=== PATIENT | female | born 1990 | race Caucasian/White ===

== ENCOUNTER 2018-03-13 12:25 | Inpatient (IN) | payer MEDICAID ==
[2018-03-13 13:14] LABS: ADD UMIC YES; UR AMORPHOUS CRYSTAL FEW /HPF (NONE SEEN); UR ASCORBIC ACID NEGATIVE (NEGATIVE); UR BACTERIA MODERATE /HPF (NONE SEEN); UR BILIRUBIN (Dip) NEGATIVE (NEGATIVE); UR BLOOD (Dip) NEGATIVE (NEGATIVE); UR CLARITY CLEAR (CLEAR); UR COLOR YELLOW (YELLOW); UR GLUCOSE (Dip) NEGATIVE (NEGATIVE); UR KETONES (Dip) NEGATIVE (NEGATIVE); UR LEUKOCYTE ESTERASE (Dip) 1+ Leu/ul (NEGATIVE); UR NITRITE (Dip) NEGATIVE (NEGATIVE); UR RBC 3 /HPF (0-5); UR SPECIFIC GRAVITY (Dip) 1.005 (1.003-1.030); UR SQUAMOUS EPITHELIAL CELL MODERATE /HPF (FEW); UR TOTAL PROTEIN (Dip) NEGATIVE (NEGATIVE); UR UROBILINOGEN (Dip) NEGATIVE (NEGATIVE); UR WBC 24 /HPF (0-5)
[2018-03-13 13:34] LABS: ADD MAN DIFF? NO
[2018-03-13 13:42] LABS: BASOPHILS % 0.1 % (0.0-2.0); EOSINOPHILS % 0.4 % (0.0-7.0); HEMATOCRIT 39.9 % (37.0-47.0); LYMPHOCYTES # 1.5 10^3/ul (0.8-2.9); MEAN CORPUSCULAR HEMOGLOBIN 29.7 pg (29.0-33.0); MEAN CORPUSCULAR HGB CONC 32.6 g/dl (32.0-37.0); MEAN CORPUSCULAR VOLUME 91.3 fl (82.0-101.0); MEAN PLATELET VOLUME 11.5 fl (7.4-10.4); MONOCYTE # 0.7 10^3/ul (0.3-0.9); MONOCYTES % 9.6 % (0.0-11.0); NEUTROPHIL # 4.6 10^3/ul (1.6-7.5); NEUTROPHILS % 67.8 % (39.0-77.0); PLATELET COUNT 258 10^3/UL (140-415); RED BLOOD COUNT 4.37 10^6/ul (4.20-5.40); RED CELL DISTRIBUTION WIDTH 17.2 % (11.5-14.5)
[2018-03-13 13:42] LABS: WHITE BLOOD COUNT 6.8 10^3/ul (4.8-10.8)
[2018-03-13 13:55] LABS: INR 0.89; PROTIME 12.1 Sec (11.9-14.9); PT RATIO 0.9
[2018-03-13 13:56] LABS: PARTIAL THROMBOPLASTIN TIME 24.5 Sec (23.0-35.0)
[2018-03-13 13:58] LABS: ALANINE AMINOTRANSFERASE 24 IU/L (13-69); ALBUMIN 2.8 g/dl (3.3-4.9); ALBUMIN/GLOBULIN RATIO 0.93; ALKALINE PHOSPHATASE 211 IU/L (42-121); ASPARTATE AMINO TRANSFERASE 16 IU/L (15-46); BILIRUBIN,INDIRECT 0.6 mg/dl (0-1.1); BILIRUBIN,TOTAL 0.6 mg/dl (0.2-1.3); BLOOD UREA NITROGEN 7 mg/dl (7-20); CALCIUM 9.4 mg/dl (8.4-10.2); CARBON DIOXIDE 23 mmol/L (21-31); CHLORIDE 107 mmol/L (97-110); CREATININE 0.46 mg/dl (0.44-1.00); GLUCOSE 67 mg/dl (70-220); POTASSIUM 4.1 mmol/L (3.5-5.1); SODIUM 138 mmol/L (135-144); TOTAL PROTEIN 5.8 g/dl (6.1-8.1); URIC ACID 4.9 mg/dl (3.1-7.9)
[2018-03-13] MEDS ORDERED: IBUPROFEN 600 MG TAB PO (14:30)
[2018-03-13] MEDS ORDERED: MISOPROSTOL 200 MCG TAB PR (14:30)
[2018-03-13] MEDS ORDERED: CARBOPROST 250 MCG INJ IM (14:30)
[2018-03-13] MEDS ORDERED: OXYTOCIN 30 UNITS/LR 500 ML IV (14:30)
[2018-03-13] MEDS ORDERED: METHYLERGONOVINE 0.2 MG INJ IM (14:30)
[2018-03-13] MEDS ORDERED: ACETAMINOPHEN/CODEINE #3 TAB PO (14:30)
[2018-03-13] MEDS ORDERED: BUTORPHANOL 2 MG INJ IV (14:30)
[2018-03-13] MEDS: LACTATED RINGER'S 1,000 ML IV* ×2 (14:45→23:05)
[2018-03-13 16:24] LABS: RAPID PLASMA REAGIN NONREACTIVE (NR)
[2018-03-13] MEDS: DINOPROSTONE 10 MG VAG SUPP VAG (16:51)
[2018-03-13 17:21] LABS: HEPATITIS B SURFACE ANTIGEN NEGATIVE (NEGATIVE)
[2018-03-13] MEDS ORDERED: MINERAL OIL LIGHT 10 ML VIAL TOP (18:00)
[2018-03-13] MEDS ORDERED: LIDOCAINE 0.5% (SDV) 50 ML INJ INFIL (18:00)
[2018-03-14] MEDS ORDERED: LIDOCAINE 0.5% (SDV) 50 ML INJ INFIL (01:30)
[2018-03-14] MEDS ORDERED: FENTAnyl 2MCG/ML-ROPIV 0.2% 100 ML (04:14)
[2018-03-14] MEDS ORDERED: NALOXONE (0.4 MG/ML) INJ IV (04:30)
[2018-03-14] MEDS ORDERED: DIPHENHYDRAMINE 50 MG INJ IV (04:30)
[2018-03-14] MEDS ORDERED: ONDANSETRON 4 MG INJ IV (04:30)
[2018-03-14] MEDS: LACTATED RINGER'S 1,000 ML IV* ×5 (04:33→22:43)
[2018-03-14 09:17] LABS: ANION GAP 8 (5-13)
[2018-03-14] MEDS: ACETAMINOPHEN 325 MG TAB PO ×2 (11:04→20:20)
[2018-03-14] MEDS: GENTAMICIN 120 MG/NS (PMX) 100 ML IVPB (11:40)
[2018-03-14] MEDS: OXYTOCIN 30 UNITS/LR 500 ML IV (12:03)
[2018-03-14] MEDS: AMPICILLIN 2 GM/NS (PMX) 100 ML IV (12:18)
[2018-03-14] MEDS: FENTAnyl 2MCG/ML-ROPIV 0.2% 100 ML BAG EPI ×2 (14:34→22:45)
[2018-03-14] MEDS: AMPICILLIN 1 GM/NS (PMX) 50 ML IV ×2 (16:39→20:38)
[2018-03-14] MEDS: GENTAMICIN 80 MG/NS (PMX) 50 ML IVPB (19:41)
[2018-03-15] MEDS: AMPICILLIN 1 GM/NS (PMX) 50 ML IV ×2 (01:00→03:00)
[2018-03-15] MEDS ORDERED: morphine SULFATE/PF (10 MG/10 ML) INJ (02:12)
[2018-03-15] MEDS ORDERED: KETOROLAC 30 MG INJ (02:12)
[2018-03-15] MEDS ORDERED: LIDOCAINE 1.5%/EPI MPF (SDV) 30 ML VIAL (02:12)
[2018-03-15] MEDS ORDERED: METOCLOPRAMIDE 10 MG INJ (02:12)
[2018-03-15] MEDS ORDERED: morphine 2 MG INJ IV ×2 (02:30)
[2018-03-15] MEDS ORDERED: DIPHENHYDRAMINE 50 MG INJ IV ×2 (02:30)
[2018-03-15] MEDS ORDERED: ONDANSETRON 4 MG INJ IV ×2 (02:30)
[2018-03-15] MEDS ORDERED: NALOXONE (0.4 MG/ML) INJ IV (02:30)
[2018-03-15] MEDS ORDERED: morphine (1 MG/ML) 10ML SYRINGE IV ×3 (02:30)
[2018-03-15] MEDS: GENTAMICIN 80 MG/NS (PMX) 50 ML IVPB ×3 (03:00→17:34)
[2018-03-15] MEDS ORDERED: OXYTOCIN 30 UNITS/LR 500 ML IV ×2 (03:29→06:30)
[2018-03-15] MEDS: CEFAZOLIN 2 GM/50 ML (PMX) 50 ML IV (04:12)
[2018-03-15] MEDS: OXYTOCIN 30 UNITS/LR 500 ML IV ×3 (04:12→10:03)
[2018-03-15] MEDS: KETOROLAC 30 MG INJ IV ×3 (04:48→20:02)
[2018-03-15] MEDS: AZITHROMYCIN 500MG/NS (PMX) 250 ML IVPB (05:13)
[2018-03-15] MEDS: morphine 2 MG INJ IV ×2 (05:24→15:40)
[2018-03-15] MEDS: LACTATED RINGER'S 1,000 ML IV ×2 (06:12→22:12)
[2018-03-15] MEDS ORDERED: CARBOPROST 250 MCG INJ IM (06:30)
[2018-03-15] MEDS ORDERED: NA PHOSPHATE/BIPHOS 133 ML ENEMA PR (06:30)
[2018-03-15] MEDS ORDERED: MISOPROSTOL 200 MCG TAB PR (06:30)
[2018-03-15] MEDS ORDERED: METHYLERGONOVINE 0.2 MG INJ IM (06:30)
[2018-03-15] MEDS: SENNA/DOCUSATE NA (8.6MG/50MG) TAB PO ×2 (10:05→21:33)
[2018-03-15] MEDS: AMPICILLIN 2 GM/NS (PMX) 100 ML IVPB ×2 (12:17→18:26)
[2018-03-15] MEDS: CLINDAMYCIN 900 MG/D5W (PMX) 50 ML IVPB ×2 (14:01→21:33)
[2018-03-15 15:59] LABS: ADD MAN DIFF? NO; BASOPHILS % 0.1 % (0.0-2.0); EOSINOPHILS # 0.1 10^3/ul (0.0-0.5); EOSINOPHILS % 0.4 % (0.0-7.0); HEMATOCRIT 34.4 % (37.0-47.0); HEMOGLOBIN 11.4 g/dl (12.0-16.0); LYMPHOCYTES # 1.4 10^3/ul (0.8-2.9); LYMPHOCYTES % 8.7 % (15.0-51.0); MEAN CORPUSCULAR HEMOGLOBIN 30.6 pg (29.0-33.0); MEAN CORPUSCULAR HGB CONC 33.1 g/dl (32.0-37.0); MEAN CORPUSCULAR VOLUME 92.5 fl (82.0-101.0); MONOCYTES % 6.3 % (0.0-11.0); NEUTROPHIL # 13.7 10^3/ul (1.6-7.5); PLATELET COUNT 195 10^3/UL (140-415); RED BLOOD COUNT 3.72 10^6/ul (4.20-5.40); RED CELL DISTRIBUTION WIDTH 17.6 % (11.5-14.5)
[2018-03-15 15:59] LABS: WHITE BLOOD COUNT 16.3 10^3/ul (4.8-10.8)
[2018-03-16] MEDS: LACTATED RINGER'S 1,000 ML IV ×4 (00:01→22:12)
[2018-03-16] MEDS: AMPICILLIN 2 GM/NS (PMX) 100 ML IVPB ×3 (00:01→12:25)
[2018-03-16] MEDS: morphine 2 MG INJ IV (00:39)
[2018-03-16] MEDS: GENTAMICIN 80 MG/NS (PMX) 50 ML IVPB ×3 (02:03→18:11)
[2018-03-16] MEDS ORDERED: OXYCODONE/ACETAMINOPHEN (5/325) TAB PO (02:30)
[2018-03-16] MEDS: HYDROCODONE/APAP (5/325) TAB PO (05:02)
[2018-03-16] MEDS: CLINDAMYCIN 900 MG/D5W (PMX) 50 ML IVPB ×3 (05:31→22:25)
[2018-03-16] MEDS: IBUPROFEN 800 MG TAB PO ×3 (05:31→22:25)
[2018-03-16] MEDS: SENNA/DOCUSATE NA (8.6MG/50MG) TAB PO ×2 (09:41→21:04)
[2018-03-16 15:53] LABS: ADD MAN DIFF? NO
[2018-03-16 15:57] LABS: WHITE BLOOD COUNT 14.2 10^3/ul (4.8-10.8)
[2018-03-16 15:57] LABS: BASOPHILS % 0.1 % (0.0-2.0); EOSINOPHILS # 0.2 10^3/ul (0.0-0.5); EOSINOPHILS % 1.7 % (0.0-7.0); HEMATOCRIT 33.8 % (37.0-47.0); HEMOGLOBIN 11.1 g/dl (12.0-16.0); LYMPHOCYTES % 7.2 % (15.0-51.0); MEAN CORPUSCULAR HEMOGLOBIN 30.2 pg (29.0-33.0); MEAN CORPUSCULAR HGB CONC 32.8 g/dl (32.0-37.0); MEAN CORPUSCULAR VOLUME 92.1 fl (82.0-101.0); MONOCYTE # 0.8 10^3/ul (0.3-0.9); MONOCYTES % 5.5 % (0.0-11.0); NEUTROPHIL # 12.1 10^3/ul (1.6-7.5); NEUTROPHILS % 84.9 % (39.0-77.0); PLATELET COUNT 204 10^3/UL (140-415); RED BLOOD COUNT 3.67 10^6/ul (4.20-5.40); RED CELL DISTRIBUTION WIDTH 17.3 % (11.5-14.5)
[2018-03-16] MEDS: CIPROFLOXACIN 400MG/D5W 200 ML IVPB (21:04)
[2018-03-17] MEDS: GENTAMICIN 80 MG/NS (PMX) 50 ML IVPB ×2 (01:55→10:37)
[2018-03-17] MEDS: IBUPROFEN 800 MG TAB PO ×3 (05:31→21:47)
[2018-03-17] MEDS: CLINDAMYCIN 900 MG/D5W (PMX) 50 ML IVPB ×2 (05:31→14:19)
[2018-03-17] MEDS: BISACODYL 10 MG SUPP PR (05:34)
[2018-03-17] MEDS: LACTATED RINGER'S 1,000 ML IV ×3 (06:12→22:12)
[2018-03-17 07:19] LABS: ADD MAN DIFF? NO
[2018-03-17 07:20] LABS: WHITE BLOOD COUNT 10.8 10^3/ul (4.8-10.8)
[2018-03-17 07:20] LABS: BASOPHILS % 0.1 % (0.0-2.0); EOSINOPHILS # 0.2 10^3/ul (0.0-0.5); HEMATOCRIT 32.1 % (37.0-47.0); HEMOGLOBIN 10.1 g/dl (12.0-16.0); LYMPHOCYTES # 1.3 10^3/ul (0.8-2.9); LYMPHOCYTES % 12.3 % (15.0-51.0); MEAN CORPUSCULAR HEMOGLOBIN 29.6 pg (29.0-33.0); MEAN CORPUSCULAR HGB CONC 31.5 g/dl (32.0-37.0); MEAN CORPUSCULAR VOLUME 94.1 fl (82.0-101.0); MEAN PLATELET VOLUME 11.5 fl (7.4-10.4); MONOCYTE # 0.6 10^3/ul (0.3-0.9); MONOCYTES % 5.9 % (0.0-11.0); NEUTROPHIL # 8.6 10^3/ul (1.6-7.5); NEUTROPHILS % 79.2 % (39.0-77.0); PLATELET COUNT 208 10^3/UL (140-415); RED BLOOD COUNT 3.41 10^6/ul (4.20-5.40); RED CELL DISTRIBUTION WIDTH 17.5 % (11.5-14.5)
[2018-03-17] MEDS: SENNA/DOCUSATE NA (8.6MG/50MG) TAB PO ×2 (09:01→21:47)
[2018-03-17] MEDS: CIPROFLOXACIN 400MG/D5W 200 ML IVPB (09:02)
[2018-03-17] MEDS: CIPROFLOXACIN 500 MG TAB PO (23:41)
[2018-03-18 05:55] LABS: ADD MAN DIFF? NO
[2018-03-18 06:02] LABS: WHITE BLOOD COUNT 7.8 10^3/ul (4.8-10.8)
[2018-03-18 06:02] LABS: BASOPHILS % 0.3 % (0.0-2.0); EOSINOPHILS # 0.3 10^3/ul (0.0-0.5); EOSINOPHILS % 3.6 % (0.0-7.0); HEMATOCRIT 30.8 % (37.0-47.0); LYMPHOCYTES # 1.5 10^3/ul (0.8-2.9); LYMPHOCYTES % 19.2 % (15.0-51.0); MEAN CORPUSCULAR HEMOGLOBIN 30.6 pg (29.0-33.0); MEAN CORPUSCULAR HGB CONC 32.5 g/dl (32.0-37.0); MEAN CORPUSCULAR VOLUME 94.2 fl (82.0-101.0); MEAN PLATELET VOLUME 10.8 fl (7.4-10.4); MONOCYTE # 0.5 10^3/ul (0.3-0.9); MONOCYTES % 6.5 % (0.0-11.0); NEUTROPHIL # 5.5 10^3/ul (1.6-7.5); NEUTROPHILS % 69.8 % (39.0-77.0); PLATELET COUNT 220 10^3/UL (140-415); RED BLOOD COUNT 3.27 10^6/ul (4.20-5.40); RED CELL DISTRIBUTION WIDTH 17.4 % (11.5-14.5)
[2018-03-18] MEDS: LACTATED RINGER'S 1,000 ML IV (06:12)
[2018-03-18] MEDS: CIPROFLOXACIN 500 MG TAB PO (06:45)
[2018-03-18] MEDS: IBUPROFEN 800 MG TAB PO (06:45)
[2018-03-18] MEDS ORDERED: DIPHTH/TET/ACEL PERTUSS (ADULT) 0.5 ML VIAL IM* (09:00)
[2018-03-18] MEDS: SENNA/DOCUSATE NA (8.6MG/50MG) TAB PO (09:00)
[2018-03-18] MEDS: MEASLES,MUMPS,RUBELLA VACCINE INJ SC* (09:00)
[2018-03-18] MEDS: LANOLIN 7 GM TUBE TOP (13:24)
== END 2018-03-18 15:10 | disposition home or self-care (01) | DRG 787 ==
LOC: OBT 12:25 → L-D 12:25 → PP1 03-15 05:57 → OBT 14:00 → L-D 14:00
PROC: 10D00Z1 Extraction of Products of Conception, Low, Open Approach (ICD-10-PCS; principal; 2018-03-15 02:30)
DX: O62.0 Primary inadequate contractions (principal); O75.2 Pyrexia during labor, not elsewhere classified; O63.0 Prolonged first stage (of labor); O32.4XX0 Maternal care for high head at term, not applicable or unspecified; Z3A.39 39 weeks gestation of pregnancy; Z37.0 Single live birth
CPT/HCPCS: 62319; 76815; 76818; 80053; 81001; 84560; 85025; 85610; 85730; 86592; 86850; 86900; 86901; 87040; 87086; 87340; 90715; 99464